=== PATIENT | male | born 1995 ===

== ENCOUNTER 2018-09-08 19:43 | Emergency (ER) | payer MEDICAID ==
[2018-09-08 19:43] VITALS: BMI 24.3
[2018-09-08 20:01] VITALS: BP 100/62; PULSE 71; RESP 16; TEMP 98.1; O2SAT 98
--- NOTE | 2018-09-08 20:39 | C.PDOC ---
History Of Present Illness 23 year old male presents to the ED for evaluation of bilateral toe pain and swelling over the past month. Patient now reports redness and minimal drainage from the area, prompting visit. He denies fever, chills, trauma, extremity numbness/weakness. Time Seen by Provider: 09/08/18 20:12 Chief Complaint (Nursing): Lower Extremity Problem/Injury History Per: Patient History/Exam Limitations: no limitations Onset/Duration Of Symptoms: Other (one month ) Current Symptoms Are (Timing): Worse Additional History Per: Patient Past Medical History Reviewed: Historical Data, Nursing Documentation, Vital Signs Vital Signs: Last Vital Signs Temp 98.1 F 09/08/18 19:53 Pulse 71 09/08/18 19:53 Resp 16 09/08/18 19:53 BP 100/62 09/08/18 19:53 Pulse Ox 98 09/08/18 19:53 - Medical History PMH: Asthma Denies: Chronic Kidney Disease Surgical History: Hernia Repair Family History: States: Unknown Family Hx - Social History Hx Alcohol Use: Yes Hx Substance Use: No - Immunization History Hx Tetanus Toxoid Vaccination: No Hx Influenza Vaccination: No Hx Pneumococcal Vaccination: No Review Of Systems Constitutional: Negative for: Fever, Chills Musculoskeletal: Positive for: Other (pain, swelling, redness and minimal drainage to bilateral toes ) Neurological: Negative for: Weakness, Numbness Physical Exam - Physical Exam Appears: Non-toxic, No Acute Distress Skin: Warm, Dry Extremity: Normal ROM, No Calf Tenderness, Capillary Refill (less than 2 seconds ), Other (ingrown toenails to medial aspects of bilateral great toes, left worse than right. Left great toenail with yellow-colored moist deposit and granulomatous tissue at the border of the nail and erythema at the base of the nailbed. right ingrown great toenail with minimal erythema, no drainage. remainder of feet are unremarkable ) Pulses: Left Dorsalis Pedis: Normal, Right Dorsalis Pedis: Normal Neurological/Psych: Normal Speech, Normal Cognition, Normal Motor, Normal Sensat ion Gait: Steady ED Course And Treatment O2 Sat by Pulse Oximetry: 98 (on RA) Pulse Ox Interpretation: Normal Progress Note: Keflex PO and Motrin PO given. On reassessment, patient is resting comfortably, showing no signs of distress and is stable for discharge. Patient is advised to apply warm compressess to the area and advised to f/u with podiatry within 1-2 days for further evaluation. Disposition - Disposition Referrals: Harvinder Caceres MD [Staff Provider] - [facility]ry Clinic [Outside] Disposition: HOME/ ROUTINE Disposition Time: 20:36 Condition: STABLE Additional Instructions: Please follow up with Podiatry Take medications as directed Return to ER if worse Prescriptions: Cephalexin [Keflex] 500 mg PO Q6 #28 capsule Ibuprofen [Motrin] 600 mg PO Q6H #20 tab Instructions: Ingrown Toenail (DC) Forms: PhoneAndPhone (Algerian) - Clinical Impression Clinical Impression: Ingrowing nail with infection - PA / HAIR OR [employer] ASSISTANT / Resident Statement MD/DO has reviewed & agrees with the documentation as recorded. - Scribe Statement The provider has reviewed the documentation as recorded by the Scribe (Danae Mtz) All medical record entries made by the Scribe were at my direction and personally dictated by me. I have reviewed the chart and agree that the record accurately reflects my personal performance of the history, physical exam, medical decision making, and the department course for this patient. I have also personally directed, reviewed, and agree with the discharge instructions and disposition.
== END 2018-09-08 20:55 | disposition home or self-care (01) ==
LOC: C.ER 19:43
DX: L60.0 Ingrowing nail (principal); L08.89 Other specified local infections of the skin and subcutaneous tissue